=== PATIENT | female | born 1945 | race Hispanic/Latino ===

== ENCOUNTER 2018-06-04 14:22 | Observation (INO) | payer OTHER ==
[~2018-06-04] VITALS: Ht 144.8 cm; Wt 62.1 kg
[~2018-06-04 14:22] MED LIST: DILAUDID2 MG PO; VALTREX1 GM PO
[2018-06-04 14:50] LABS: ABSOLUTE BASOPHIL COUNT 0 /CUMM (0.0-0.2); ABSOLUTE EOSINOPHIL COUNT 0.1 /CUMM (0.0-0.7); ABSOLUTE GRANULOCYTE CT 5.5 /CUMM (1.4-6.5); ABSOLUTE MONOCYTE COUNT 0.7 /CUMM (0.10-0.60); BASOPHIL % 0.3 % (0.0-2.0); EOSINOPHIL % 1.1 % (0-5); GRANULOCYTE % 58.7 % (42.2-75.2); HEMATOCRIT 31.6 % (37-47); MEAN CORPUSCULAR HGB 29.6 PG (27.0-31.0); MEAN CORPUSCULAR HGB CONC 34.2 G/DL (33.0-37.0); MEAN CORPUSCULAR VOLUME 86.5 FL (81.0-99.0); MEAN PLATELET VOLUME 7.9 FL (7.4-10.4); PLATELET COUNT 185 /CUMM (130-400); RBC DISTRIBUTION WIDTH 14.6 % (11.5-14.5); RED BLOOD CELL CT 3.65 /CUMM (4.20-5.40); WHITE BLOOD CELL COUNT 9.4 /CUMM (4.8-10.8)
--- NOTE | 2018-06-04 17:11 | CT SCAN REPORT ---
EXAMINATION: CT ABDOMEN AND PELVIS WITH CONTRAST CLINICAL INFORMATION: Right lower quadrant abdominal pain for 3 days. Presumptive diagnosis of appendicitis. Patient with history of right breast lumpectomy for invasive ductal carcinoma in 2010. History of FDG avid left parotid mass. COMPARISON: PET CT scan dated 02/29/2016. CT scan of the abdomen and pelvis dated 10/06/2013. TECHNIQUE: Multidetector CT volumetric acquisition of the abdomen and pelvis was performed after the administration of 95 mL of intravenous Optiray 320. The data set was reformatted in the sagittal and coronal planes and reviewed on an independent workstation. DLP: 244.80 mGy-cm. FINDINGS: LOWER CHEST: Included lung bases unremarkable. LIVER, GALLBLADDER, BILIARY TREE: Liver normal size and attenuation. No focal cystic or solid mass or intra-or extrahepatic ductal dilatation. Hepatic and portal veins patent. Gallbladder partially distended and within normal limits. PANCREAS: Pancreatic body and tail are atrophic. No ductal dilatation, mass, or peripancreatic stranding. SPLEEN: Normal size and appearance. There is a partially calcified 0.9 cm rounded structure in the splenic hilar region, suspicious for a splenic arterial aneurysm, previously measuring 0.7 cm (10/06/2013). Splenic vein patent. ADRENAL GLANDS AND KIDNEYS: Adrenal glands normal. Kidneys bilaterally symmetric in size and function. No focal mass, hydronephrosis, nephrolithiasis or perinephric stranding. URETERS AND BLADDER: Ureters decompressed and within normal limits. Bladder partially distended and within normal limits. PELVIC ORGANS: The patient is status post hysterectomy. The ovaries bilaterally appear atrophic. No suspicious adnexal mass. GASTROINTESTINAL TRACT: The appendix is abnormally dilated and fluid-filled with mild mucosal hyperenhancement and prominent surrounding fat infiltration and edema. Appendiceal lumen measures up to 1.3 cm in diameter. Small periappendiceal lymph nodes are seen, measuring up to 0.6 cm in short axis. Findings are consistent with acute appendicitis with surrounding mild phlegmonous changes and adenitis. No definite free air or focal abscess collection is seen. The cecal base and terminal ileum are unremarkable. Scattered colonic diverticulosis with no evidence of acute diverticulitis, most prominent in the distal descending and proximal sigmoid colon. Small and large bowel loops remain decompressed. LYMPHOVASCULAR STRUCTURES: Abdominal aorta normal in caliber. No periaortic collections. Small subcentimeter sized right lower quadrant lymph nodes are seen. No other abdominal or pelvic adenopathy. BONES: Mild degenerative changes in the hip joints, right sacroiliac joint again noted. Moderate facet arthropathy seen in the mid and lower lumbar spine. Grade 1 anterolisthesis of L4 on L5 is seen, likely on a degenerative basis. Small bone island in the right femoral neck/intertrochanteric region is seen. IMPRESSION: 1. Above findings are consistent with acute appendicitis with mild periappendiceal phlegmonous changes and adenitis. No evidence of bowel perforation or abscess formation seen. 2. Colonic diverticulosis with no evidence of acute diverticulitis. 3. Suspicion of a subtle partially calcified small splenic arterial aneurysm. 4. Status post hysterectomy. This critical result was discussed with Dr Baron Mcrae , 06/04/2018, 5:05 PM and it was ascertained that the content and urgency of this report was understood at the time of direct communication.
--- NOTE | 2018-06-04 17:16 | ED GI/GU/ABDOMINAL COMPLAINT ---
History of Present Illness General Chief Complaint: Abdominal Pain/Flank Pain Stated Complaint: ABD PAIN SENT BY [facility] FOR [facility] Source: patient Exam Limitations: no limitations Vital Signs & Intake/Output Vital Signs & Intake/Output ED Intake and Output 06/06 0000 06/05 1200 Intake Total 875 900 Output Total Balance 875 900 Intake, IV 375 600 Intake, Oral 500 300 Allergies Coded Allergies: aspirin (Severe, DIZZINESS 06/04/18) Reconcile Medications Levothyroxine Sodium 75 MCG TABLET 1 TAB PO DAILY thyroid (Reported) Lisinopril 5 MG TABLET 1 TAB PO DAILY htn (Reported) Oxycodone HCl/Acetaminophen (Percocet 5-325 MG Tablet) 5 MG-325 MG TABLET 1-2 TAB PO Q4P PRN postop pain Simvastatin (Simvastatin*) 20 MG TABLET 1 TAB PO QPM cholesterol (Reported) Triage Note: 73 YO FEMALE TO TRIAGE FOR EVAL OF RLQ PAIN SINCE SUNDAY. REPORTS +NAUSEA. WAS SEEN AT URGENT CARE AND SENT TO ER FOR CT SCAN. Triage Nurses Notes Reviewed? yes ? N Is pt currently ? No HPI: Patient presents for evaluation of lower abdominal pain that began gradually on Sunday. She had a low-grade fever on Sunday. Patient's pain has been constant , moderate to severe in intensity with associated nausea. She was evaluated at a walk-in clinic today and referred to the emergency department for evaluation. Nothing seems to make the pain feel better. Past History Travel History Traveled to [place] past 21 day No Medical History Any Pertinent Medical History? 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 No Review of Systems Review of Systems Constitutional: Reports: no symptoms. EENTM: Reports: no symptoms. Respiratory: Reports: no symptoms. Cardiovascular: Reports: no symptoms. GI: Reports: see HPI. Genitourinary: Reports: no symptoms. Musculoskeletal: Reports: no symptoms. Skin: Reports: no symptoms. Neurological/Psychological: Reports: no symptoms. Hematologic/Endocrine: Reports: no symptoms. Immunologic/Allergic: Reports: no symptoms. All Other Systems: Reviewed and Negative Physical Exam Physical Exam Gastrointestinal: SEE BELOW Comments: Gen.: Well-nourished, well-developed, no acute respiratory distress. Head: Normocephalic, atraumatic. Eyes: Normal inspection bilaterally Ears: Normal inspection bilaterally Nose: Normal inspection Throat/mouth : Moist mucosa Neck: Supple, full range of motion, no goiter Heart: Regular rate and rhythm, no murmurs rubs or gallops Lungs: Clear to auscultation bilaterally with normal air entry Chest: Nontender Back: Normal range of motion Abdomen: Soft, diffuse tenderness with voluntary guarding but no rebound, nondistended, normal bowel sounds Extremities: Normal range of motion grossly, equal radial pulses, no cyanosis clubbing or edema Neurologic: Cranial nerves grossly intact, speech is clear Skin: warm and dry Psychiatric: Calm, cooperative, no apparent delusions or hallucinations Core Measures ACS in differential dx? No Sepsis Present: No Sepsis Focused Exam Completed? No Progress Differential Diagnosis: appendicitis, biliary colic, bowel obstruction, diverticulitis, kidney stone, pancreatitis, UTI/pyelo Plan of Care: Orders Procedure Date/time Status Nothing by Mouth 06/05 B Active URINALYSIS 06/04 1434 Complete TROPONIN LEVEL 06/04 1434 Complete LIPASE 06/04 1434 Complete COMPREHENSIVE METABOLIC PANEL 06/04 1434 Complete CBC WITHOUT DIFFERENTIAL 06/04 1434 Complete EKG 06/04 1434 Active Current Medications Sig/Iker Start time Last Medication Dose Stop Time Status Admin Metronidazole 500 MG ONCE ONE 06/04 1730 AC (Flagyl) 06/04 1829 N/A 1 UNIT (No Carrier) Sodium Chloride 1,000 ML ONCE ONE 06/04 1715 AC (Normal Saline 0.9%) 06/04 2354 Laboratory Tests 06/04/18 1520: Urine Color YEL, Urine Clarity CLEAR, Urine pH 6.0, Ur Specific [place] <= 1.005 , Urine Protein NEG, Urine Ketones NEG, Urine Nitrite NEG, Urine Bilirubin NEG, Urine Urobilinogen 0.2, Ur Leukocyte Esterase SMALL H, Ur Microscopic SEDIMENT EXAMINED, Urine WBC 3-5 H, Ur Epithelial Cells MANY H, Hyaline Casts RARE H, Urine Hemoglobin NEG, Urine Glucose NEG 06/04/18 1440: Anion Gap 9, Estimated GFR > 60, BUN/Creatinine Ratio 27.1 H, Glucose 106 H, Calcium 9.1, Total Bilirubin 1.2, AST 25, ALT 34, Alkaline Phosphatase 119, Troponin I < 0.01, Total Protein 7.8, Albumin 4.1, Globulin 3.7, Albumin/ Globulin Ratio 1.1, Lipase 217, CBC w Diff NO MAN DIFF REQ, RBC 3.65 L, MCV 86.5, MCH 29.6, MCHC 34.2, RDW 14.6 H, MPV 7.9, Gran % 58.7, Lymphocytes % 32.2 , Monocytes % 7.7, Eosinophils % 1.1, Basophils % 0.3, Absolute Granulocytes 5.5 , Absolute Lymphocytes 3.0, Absolute Monocytes 0.7 H, Absolute Eosinophils 0.1, Absolute Basophils 0 Diagnostic Imaging: Discussed w/RAD: CT Scan. Radiology Impression: PATIENT: MEAGHAN HARRISON PRESENT AGE: 73 PATIENT ACCOUNT NO: [id number] : 46 LOCATION: [facility] ORDERING PHYSICIAN: Kali MONROY SERVICE DATE: 06/04/18 EXAM TYPE: CAT - CT ABD & PELVIS W IV CONTRAST EXAMINATION: CT ABDOMEN AND PELVIS WITH CONTRAST CLINICAL INFORMATION: Right lower quadrant abdominal pain for 3 days. Presumptive diagnosis of appendicitis. Patient with history of right breast lumpectomy for invasive ductal carcinoma in 2010. History of FDG avid left parotid mass. COMPARISON: PET CT scan dated 02/29/2016. CT scan of the abdomen and pelvis dated 10/06/2013. TECHNIQUE: Multidetector CT volumetric acquisition of the abdomen and pelvis was performed after the administration of 95 mL of intravenous Optiray 320. The data set was reformatted in the sagittal and coronal planes and reviewed on an independent workstation. DLP: 244.80 mGy-cm. FINDINGS: LOWER CHEST: Included lung bases unremarkable. LIVER, GALLBLADDER, BILIARY TREE: Liver normal size and attenuation. No focal cystic or solid mass or intra-or extrahepatic ductal dilatation. Hepatic and portal veins patent. Gallbladder partially distended and within normal limits. PANCREAS: Pancreatic body and tail are atrophic. No ductal dilatation, mass, or peripancreatic stranding. SPLEEN: Normal size and appearance. There is a partially calcified 0.9 cm rounded structure in the splenic hilar region, suspicious for a splenic arterial aneurysm, previously measuring 0.7 cm (10/06/2013). Splenic vein patent. ADRENAL GLANDS AND KIDNEYS: Adrenal glands normal. Kidneys bilaterally symmetric in size and function. No focal mass, hydronephrosis, nephrolithiasis or perinephric stranding. URETERS AND BLADDER: Ureters decompressed and within normal limits. Bladder partially distended and within normal limits. PELVIC ORGANS: The patient is status post hysterectomy. The ovaries bilaterally appear atrophic. No suspicious adnexal mass. GASTROINTESTINAL TRACT: The appendix is abnormally dilated and fluid-filled with mild mucosal hyperenhancement and prominent surrounding fat infiltration and edema. Appendiceal lumen measures up to 1.3 cm in diameter. Small periappendiceal lymph nodes are seen, measuring up to 0.6 cm in short axis. Findings are consistent with acute appendicitis with surrounding mild phlegmonous changes and adenitis. No definite free air or focal abscess collection is seen. The cecal base and terminal ileum are unremarkable. Scattered colonic diverticulosis with no evidence of acute diverticulitis, most prominent in the distal descending and proximal sigmoid colon. Small and large bowel loops remain decompressed. LYMPHOVASCULAR STRUCTURES: Abdominal aorta normal in caliber. No periaortic collections. Small subcentimeter sized right lower quadrant lymph nodes are seen. No other abdominal or pelvic adenopathy. BONES: Mild degenerative changes in the hip joints, right sacroiliac joint again noted. Moderate facet arthropathy seen in the mid and lower lumbar spine. Grade 1 anterolisthesis of L4 on L5 is seen, likely on a degenerative basis. Small bone island in the right femoral neck/intertrochanteric region is seen. IMPRESSION: 1. Above findings are consistent with acute appendicitis with mild periappendiceal phlegmonous changes and adenitis. No evidence of bowel perforation or abscess formation seen. 2. Colonic diverticulosis with no evidence of acute diverticulitis. 3. Suspicion of a subtle partially calcified small splenic arterial aneurysm. 4. Status post hysterectomy. This critical result was discussed with Dr Baron Mcrae , 06/04/2018, 5:05 PM and it was ascertained that the content and urgency of this report was understood at the time of direct communication. DICTATED BY: Mehreen Amezquita MD DATE/TIME DICTATED:06/04/181637 [employer] WORKER:GEORGINA DATE/TIME TRANSCRIBED:1637 CONFIDENTIAL, DO NOT COPY WITHOUT APPROPRIATE AUTHORIZATION. < Electronically signed in Other Vendor System> SIGNED BY: Mehreen Amezquita MD 06/04/18 1711 Initial ED EKG: NSR, rate (71), no ST T wave changes Prior EKG: unchanged Comments: 06/04/2018 5:09:20 PM I was just contacted by the radiologist regarding this patient's CAT scan. The patient has acute appendicitis. I'm requesting that the patient be right back to the main emergency department from the waiting room and I have just paged the on-call surgeon. 06/04/2018 5:31:57 PM patient's case discussed with Yasir Falk MD. IV fluids and IV antibiotics ordered. Departure Departure Disposition: STILL A PATIENT Condition: Stable Clinical Impression Primary Impression: Acute appendicitis Qualifiers: Acute appendicitis type: unspecified acute appendicitis type Qualified Code: K35.80 - Unspecified acute appendicitis Referrals: Amol GRIMM,Jennifer Hairston (PCP/Family) Departure Forms: Customer Survey General Discharge Information Prescriptions: Current Visit Scripts Oxycodone HCl/Acetaminophen (Percocet 5-325 MG Tablet) 1-2 TAB PO Q4P PRN postop pain #18 TAB
--- NOTE | 2018-06-04 18:12 | History & Physical Pre-Op ---
General Information and HPI History of Present Illness: CC: abdominal pain HPI: 73-year-old nondiabetic nonsmoker started having some abdominal pain on Sunday it worsened a little bit initially some nausea vomiting and fever that improved but the pain persisted is not severe with primary examined her and suggested she go to the emergency room. She denies any recent sore throat or flulike symptoms there is a family history of appendicitis initially she was constipated a day or 2 before pain does not radiate no dysuria no bleeding per rectum. Otherwise no changes bowel habits, weight or appetite. I've reviewed the [facility]. No history of GERD, PUD, bleeding problems, heart disease or issues with anesthesia. Family history positive for breast cancer. 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 Surgical History Pertinent Surgical History: non-contributory Review of Systems Review of Systems: Constitutional: No fever, sweats or weight loss ENMT: No sore throat Cardiovascular: No chest pain, palpitations or leg swelling Respiratory: No shortness of breath, cough, or sputum or dyspnea on exertion GI: No GERD or bleeding per rectum : No dysuria or hematuria Musculoskeletal: No new muscle weakness, bone or joint pain Skin / Breast: No jaundice, rashes or itching Psychiatric: No history of drug or alcohol abuse no depression or anxiety Hematologic / lymphatic system: No problems with excessive bleeding, bruising, or blood clots Exam & Diagnostic Data Last 24 Hrs of Vital Signs/I&O I reviewed Vital Signs Date Time Temp Pulse Resp B/P B/P Pulse O2 O2 Flow FiO2 Mean Ox Delivery Rate 06/04 1801 98.4 74 18 145/71 98 06/04 1433 98.4 78 18 147/70 98 Room Air I reviewed Intake & Output 06/04 1600 06/04 0800 06/04 0000 Intake Total Output Total Balance Patient 137 lb Weight Weight Reported by Patient Measurement Method Physical Exam: Constitutional: pleasant, no acute distress, conversant Eyes: sclera anicteric ENMT: ears and nose atraumatic, moist mucous membranes, good dentition, no lip lesions Neck: Supple, trachea is midline, no cervical or supraclavicular adenopathy and no palpable thyromegaly Cardiovascular: S1, S2, no murmurs, no peripheral edema Respiratory: clear to auscultation with normal respiratory effort and no intercostal retractions GI: abdomen soft, right lower quadrant tender, nondistended, no palpable hepatosplenomegaly Extremities / lymphatics: symmetrically warm, free range of motion no peripheral edema, no cervical, supraclavicular, axillary, or inguinal adenopathy Musculoskeletal: Did not evaluate gait and station, no digital cyanosis, good muscle strength and tone no atrophy, motor grossly 5 out of 5 throughout Skin: no jaundice, no rashes warm, nondiaphoretic, no areas of erythema or induration Psychiatric: mood and affect are appropriate and alert and oriented to person place and time Last 24 Hrs of Labs/Mitchell: I reviewed Laboratory Tests 06/04/18 1520: Urine Color YEL, Urine Clarity CLEAR, Urine pH 6.0, Ur Specific [place] <= 1.005 , Urine Protein NEG, Urine Ketones NEG, Urine Nitrite NEG, Urine Bilirubin NEG, Urine Urobilinogen 0.2, Ur Leukocyte Esterase SMALL H, Ur Microscopic SEDIMENT EXAMINED, Urine WBC 3-5 H, Ur Epithelial Cells MANY H, Hyaline Casts RARE H, Urine Hemoglobin NEG, Urine Glucose NEG 06/04/18 1440: Anion Gap 9, Estimated GFR > 60, BUN/Creatinine Ratio 27.1 H, Glucose 106 H, Calcium 9.1, Total Bilirubin 1.2, AST 25, ALT 34, Alkaline Phosphatase 119, Troponin I < 0.01, Total Protein 7.8, Albumin 4.1, Globulin 3.7, Albumin/ Globulin Ratio 1.1, Lipase 217, CBC w Diff NO MAN DIFF REQ, RBC 3.65 L, MCV 86.5, MCH 29.6, MCHC 34.2, RDW 14.6 H, MPV 7.9, Gran % 58.7, Lymphocytes % 32.2 , Monocytes % 7.7, Eosinophils % 1.1, Basophils % 0.3, Absolute Granulocytes 5.5 , Absolute Lymphocytes 3.0, Absolute Monocytes 0.7 H, Absolute Eosinophils 0.1, Absolute Basophils 0 Assessment/Plan Assessment/Plan: I reviewed the CT scan on PACS myself shows a dilated appendix pointing medially , no obvious signs of free perforation Impression is acute appendicitis. I explained to the patient that this is a potentially life-threatening infection for which I recommend an appendectomy. I feel antibiotics often alone are not enough and sometimes there is an occult malignancy. The severity of infection is related to the chance of perforation which usually increases after about 24 hours, she is presenting after this so there is a chance that it's a walled off perforation of phlegmon that there will be denser adhesions which makes the surgery technically little more challenging, depending on what we find intraoperatively they may be discharged the same day or may need to stay for more IV antibiotics, at depends. I also discussed the possibility of a postoperative infection whether superficial or deep, this is also related to the initial severity and may also appear even a week later after an initial interval of well-being during the recovery. I explained the operation we usually do it laparoscopically rarely converting to open, depending on the amount of inflammation and whether the anatomy is very unusual all to avoid inadvertent injury to surrounding surrounding structures such as bowel and blood vessels and ureter. We also discussed the potential risks, benefits and alternatives to the procedure and surgery in general, issues that included but were not limited to, anesthetic risks hemorrhage requiring transfusion, the risk of transfusion itself, infection, heart attack, stroke, . As Ranked By This Provider Problem List: 1. Acute appendicitis Copies To: Deya GRIMM,Yasir Fox Attending MD Review Statement Attending Statement Attending MD Statement: examined this patient
--- NOTE | 2018-06-04 19:58 | Operative Report ---
Operative/Inv Procedure Report Surgery Date: 06/04/18 Name of Procedure: Laparoscopic appendectomy Pre-Operative Diagnosis: Acute appendicitis Post-Operative Diagnosis: Same Estimated Blood Loss: scant Surgeon/Administrative Services Assistant: MD Anita Bonilla Anesthesia: general endotracheal tube Operative/Procedure Note Note: Patient was placed on the OR table in the supine position. After successful induction of general anesthesia the patient's abdomen was prepped clipped and draped in the usual sterile fashion The left arm was tucked. Local anesthetic was injected at the top of the umbilicus and entry into the peritoneum was established via the open Sheldon technique: a one cm curved incision was made at the top of the umbilicus, the linea alba was secured between 2 pediatric Alli clamps and incised vertically, 0-Vicryl stay sutures were placed on each side and then while retracting upwards, the peritoneal layer was entered sharply, then through that small opening, using an S retractor acting like a shoehorn, a 10 mm blunt trocar was inserted obliquely to the right and secured with the stay sutures. The gas was turned on to maximum of 15 mm, two 5 mm dissecting ports were then inserted, one suprapubic and one left lower quadrant, laterally. We used a local anesthetic needle to guide their trajectories, particular attention was given to avoid injury to the bowel, the bladder and the epigastric vessels. Then our attention was directed to the right lower quadrant, the small bowel was swept superiorly and medially, revealing the base of the cecum. An inflamed appendix was then mobilized by it from the lateral and inferior peritoneal attachments using cautery. Using a combination of a [place] dissector, peanut dissector and a [place] clamp, a window was developed between the mesoappendix and the base of the appendix. This window is then used to divide the appendix at the base and the mesoappendix with a linear stapling device, separately, using an intestinal cartridge for the appendix and a vascular cartridge for the mesoappendix; the division of the appendix includes a small flange of cecal base. The appendix is lowered into an Endobag and set aside. The staple lines were checked for bleeding and small oozing was controlled with light zaps of the cautery. We deliberately irrigate the area including up by the liver and down in the pelvis, several rounds, checking the staple lines and each time to make sure that there is no ongoing bleeding. Next the instruments and the trochars and Endobag are removed, letting the gas out. We closed the umbilical fascial incision with a [id number] 0 vicryl suture, then the 3 skin incisions are closed with multiple interrupted subcuticular 4-0 Biosyn sutures, 3 for the umbilical, 1 each for the smaller ones, then covered with Mastisol, Steri-Strips and Band-Aids. EBL minimal Lap and sponge and sponge counts: correct Wound expectancy: infected IV fluids: crystalloid Complications: none Patient tolerated the procedure well was awakened and extubated and returned to the recovery room in satisfactory condition.
[2018-06-04 21:20] VITALS: BP 110/74
[2018-06-05 06:35] VITALS: BP 112/54
--- NOTE | 2018-06-05 07:46 | PN- Student ---
See Addendum Patricia Cooper 06/05/18 0737: Subjective Subjective: Pt reports 7/10 pain. Does not wish to take morphine and is tolerating the pain. Ambulated to the bathroom without difficulty. Reports flatus last evening but no bowel movement. Only consumed tea last night without difficulty and reports having a good appetite. Denies CP, SOB, headache or dizziness. Objective Objective: Vitals: see EMR General: Eldely woman, lying in bed, appears comfortable, NAD. Cardio: Regular rate and rhythm. s1 and s2. no murmurs, rubs or gallops. Pulm: clear breath sounds anteriorly and laterally. abdomen: Softly distended. Dressings clean, dry and intact. Normoactive bowel sounds. Diffuse mild tenderness to palpation. More tender periumbilically. extremities: calves soft and non-tender to palpation. Results Results: Laboratory Tests 06/05/18 0624: CBC w Diff Pending, WBC Pending, RBC Pending, Hgb Pending, Hct Pending, MCV Pending, MCH Pending, MCHC Pending, RDW Pending, Plt Count Pending, MPV Pending 06/04/18 1520: Urine Color YEL, Urine Clarity CLEAR, Urine pH 6.0, Ur Specific [place] <= 1.005 , Urine Protein NEG, Urine Ketones NEG, Urine Nitrite NEG, Urine Bilirubin NEG, Urine Urobilinogen 0.2, Ur Leukocyte Esterase SMALL H, Ur Microscopic SEDIMENT EXAMINED, Urine WBC 3-5 H, Ur Epithelial Cells MANY H, Hyaline Casts RARE H, Urine Hemoglobin NEG, Urine Glucose NEG 06/04/18 1440: Anion Gap 9, Estimated GFR > 60, BUN/Creatinine Ratio 27.1 H, Glucose 106 H, Calcium 9.1, Total Bilirubin 1.2, AST 25, ALT 34, Alkaline Phosphatase 119, Troponin I < 0.01, Total Protein 7.8, Albumin 4.1, Globulin 3.7, Albumin/ Globulin Ratio 1.1, Lipase 217, CBC w Diff NO MAN DIFF REQ, RBC 3.65 L, MCV 86.5, MCH 29.6, MCHC 34.2, RDW 14.6 H, MPV 7.9, Gran % 58.7, Lymphocytes % 32.2 , Monocytes % 7.7, Eosinophils % 1.1, Basophils % 0.3, Absolute Granulocytes 5.5 , Absolute Lymphocytes 3.0, Absolute Monocytes 0.7 H, Absolute Eosinophils 0.1, Absolute Basophils 0 Assessment/Plan Assessment: 73 year old female POD#1 s/p laparoscopic appendectomy for acute appendicitis. PMH includes HTN, hypothroidism and HLD. Vital signs are stable and patient is afebrile overnight. Plan: Conitnue with pain control as needed. Regular diet this am. Complete doses of rocephin and flagyl. Hep SQ and ALPs for DVT ppx. Continue home medications. Encourage ambulation. continue d/c planning. Discuss with Dr. Falk and surgical PAs. Maria Teresa Sterling 06/05/18 0813: Subjective Subjective: some pain, bloated. limited oob to bathroom only. hungry. no n/v/cp/sob Objective Objective: abd- softly distended, incisions dressed-cdi. quiet bs. ttp thoughout. Assessment/Plan Plan: POD1 sp appy. some pain, distention. hungry. try reg diet this am. prn po pain meds. oob, ambulate. postop abx to complete today. dc planning. will dw Dr. Falk
--- NOTE | 2018-06-05 08:19 | Patient Discharge Instructions ---
Discharge Instructions General Discharge Information You were seen/treated for: Acute appendicits You had these procedures: Laparoscopic appendectomy Watch for these problems: Increased pain, fevr > 101.3, nausea, vomting, redness swelling or drainage from incisions Do not soak the wound: Yes No bath, but you may shower: Yes Other wound care: Keep incisions clean and dry Ok to shower and remove dressings in 24 hours. Change dressings daily as needed Diet Continue normal diet: Yes Activity Full Activity/No Limits: No Activity Self Limited: Yes Pounds, do NOT lift more than: 10 Other activity limits: No heavy lifting or strenous activity x 4 weeks Acute Coronary Syndrome Inclusion Criteria At DC or during hospital stay patient has or had the following: ACS DIAGNOSIS No Discharge Core Measures Meds if any: Prescribed or Continued at Discharge Meds if any: NOT Prescribed or Continued at Discharge Congestive Heart Failure Inclusion Criteria At DC or during hospital stay patient has or had the following: CHF DIAGNOSIS No Discharge Core Measures Meds if any: Prescribed or Continued at Discharge Meds if any: NOT Prescribed or Continued at Discharge Cerebrovascular accident Inclusion Criteria At DC or during hospital stay patient has or had the following: CVA/TIA Diagnosis No Discharge Core Measures Meds if any: Prescribed or Continued at Discharge Meds if any: NOT Prescribed or Continued at Discharge Venous thromboembolism Inclusion Criteria VTE Diagnosis No VTE Type NONE VTE Confirmed by (Test) NONE Discharge Core Measures - Per Current guidelines, there needs to be overlap - treatment for the first 5 days of Warfarin therapy. - If discharged on Warfarin prior to 5 days of - overlap therapy, the patient will need to be - assessed for post discharge needs including - *Post discharge parental anticoagulation - *Warfarin and/or parental anticoagulation education - *Follow up date to check INR post discharge At least 5 days overlap therapy as Inpatient No Meds if any: Prescribed or Continued at Discharge Note: Overlap Therapy is Warfarin and Anticoagulant Meds if any: NOT Prescribed or Continued at Discharge
[2018-06-05 10:42] LABS: ABSOLUTE BASOPHIL COUNT 0 /CUMM (0.0-0.2); ABSOLUTE EOSINOPHIL COUNT 0.1 /CUMM (0.0-0.7); ABSOLUTE GRANULOCYTE CT 2.8 /CUMM (1.4-6.5); ABSOLUTE LYMPH COUNT 2.2 /CUMM (1.2-3.4); ABSOLUTE MONOCYTE COUNT 0.4 /CUMM (0.10-0.60); BASOPHIL % 0.4 % (0.0-2.0); EOSINOPHIL % 2.2 % (0-5); GRANULOCYTE % 50.6 % (42.2-75.2); MEAN CORPUSCULAR HGB 29.3 PG (27.0-31.0); MEAN CORPUSCULAR HGB CONC 33.5 G/DL (33.0-37.0); MEAN CORPUSCULAR VOLUME 87.5 FL (81.0-99.0); MEAN PLATELET VOLUME 8.8 FL (7.4-10.4); PLATELET COUNT 149 /CUMM (130-400); RBC DISTRIBUTION WIDTH 15.1 % (11.5-14.5); RED BLOOD CELL CT 2.92 /CUMM (4.20-5.40); WHITE BLOOD CELL COUNT 5.6 /CUMM (4.8-10.8)
[2018-06-05] MEDS ORDERED: LEVOTHYROXINE75 MCG PO (10:53)
[2018-06-05] MEDS ORDERED: SIMVASTATIN20 M2 PO (10:53)
[2018-06-05] MEDS ORDERED: LISINOPRIL5 M1 PO (10:53)
[2018-06-05] MEDS ORDERED: PERCOCET 5-3251 EACH PO (10:56)
[2018-06-05 11:22] LABS: HEMATOCRIT 25.5 % (37-47)
[2018-06-05 16:01] VITALS: BP 110/60
[2018-06-05 18:05] LABS: ABSOLUTE BASOPHIL COUNT 0 /CUMM (0.0-0.2); ABSOLUTE EOSINOPHIL COUNT 0.2 /CUMM (0.0-0.7); ABSOLUTE LYMPH COUNT 2.6 /CUMM (1.2-3.4); ABSOLUTE MONOCYTE COUNT 0.4 /CUMM (0.10-0.60); BASOPHIL % 0.6 % (0.0-2.0); GRANULOCYTE % 38.5 % (42.2-75.2); HEMATOCRIT 26.5 % (37-47); MEAN CORPUSCULAR HGB 29.5 PG (27.0-31.0); MEAN CORPUSCULAR HGB CONC 34.3 G/DL (33.0-37.0); MEAN PLATELET VOLUME 8.6 FL (7.4-10.4); PLATELET COUNT 177 /CUMM (130-400); RBC DISTRIBUTION WIDTH 14.7 % (11.5-14.5); RED BLOOD CELL CT 3.08 /CUMM (4.20-5.40); WHITE BLOOD CELL COUNT 5.2 /CUMM (4.8-10.8)
== END 2018-06-05 20:34 ==
LOC: ERH 14:22 → 2NA 20:00 → PACUH 20:00 → ENRESERV 20:36 → ENTRNSPT 20:59 → EDTRNSPTSTS 21:05 → EDTRNSPT 21:05 → 2NA 21:12 → CMPTRNSPT 21:28 → ENTRNSPT 06-05 20:13 → EDTRNSPT 06-05 20:24 → EDTRNSPTSTS 06-05 20:24 → 2NA 06-05 20:34 → CMPTRNSPT 06-05 20:41
PROVIDERS: Physician Assistant Medical; Physician Assistant Surgical
DX: K35.80 Unspecified acute appendicitis (principal); I10 Essential (primary) hypertension; E03.9 Hypothyroidism, unspecified; E78.5 Hyperlipidemia, unspecified
CPT/HCPCS: 6030; 36592; 74177; 81001; 82436; 93005; 93010; 96372; 96374; 96375; G0378; J0131; J0696; J1200; J1644; J2250; J2405; J3490; J7042